=== PATIENT | male | born 1970 | race Caucasian/White ===

== ENCOUNTER 2021-11-26 15:42 | Outpatient (CLI) | payer BC | END 2021-11-26 15:43 | disposition home or self-care (01) | LOC: CSHULT 15:42 | PROVIDERS: ATTEND Family Medicine | DX: E04.1 Nontoxic single thyroid nodule (principal); E04.2 Nontoxic multinodular goiter | CPT/HCPCS: 76536 ==

== ENCOUNTER 2022-02-09 10:23 | Outpatient (CLI) | payer BC | END 2022-02-09 10:24 | disposition home or self-care (01) | LOC: CSHCT 10:23 | PROVIDERS: ATTEND Family Medicine | DX: R10.32 Left lower quadrant pain (principal); K43.9 Ventral hernia without obstruction or gangrene | CPT/HCPCS: 74177 ==

== ENCOUNTER 2022-09-11 06:56 | Inpatient (IN) | payer BC ==
[2022-09-11] MEDS ORDERED: Ondansetron PF 4 MG/2 ML Vial ONE (08:02)
[2022-09-11 08:13] LABS: #Basophils 0.1 10x3/uL (0.0-0.2); #Eosinphils 0.4 10x3/uL (0.0-0.5); #Monocytes 1.5 10x3/uL (0.0-1.1); #Neutrophils 13.8 10x3/uL (1.5-8.4); %Basophils 0.3 % (0.0-2.0); %Monocytes 8.3 % (0.0-10.0); %Neutrophils 77.8 % (40.0-75.0); Hemoglobin 17.7 g/dL (13.5-17.5); Mean Corpuscular HGB CONC 33.8 g/dL (32.0-36.0); Mean Corpuscular Hemoglobin 28.9 pg (27.0-33.0); Mean Corpuscular Volume 85.3 fl (81.2-95.1); Mean Platelet Volume 9.6 fl (7.4-10.4); Platelet Count 335 10x3/uL (150-450); RBC Distribution Width 13.3 % (11.5-14.5); Red Blood Cell (RBC) Count 6.13 10x6/uL (4.32-5.72); White Blood Cell (WBC) Count 17.7 10x3/uL (3.5-10.5)
[2022-09-11 08:21] LABS: ALT (SGPT) 14 U/L (8-55); AST (SGOT) 13 U/L (5-34); Albumin 4.4 g/dL (3.5-5.0); Alkaline Phosphatase 115 U/L (40-110); Anion Gap 23 mmol/L (10-20); BUN (Urea Nitrogen) 15 mg/dL (8.4-25.7); Bilirubin, Total 1.3 mg/dL (0.2-1.2); CK (CPK) 50 U/L (30-200); Calc. Creatinine Clearance 0 mL/min (70-130); Calcium 9.7 mg/dL (7.8-10.44); Carbon Dioxide 25 mmol/L (22-29); Chloride 100 mmol/L (98-107); Estimated GFR 91; Globulin 2.8 g/dL (2.4-3.5); Glucose 225 mg/dL (70-105); Lipase 18 U/L (8-78); Potassium 3.8 mmol/L (3.5-5.1); Protein, Total 7.2 g/dL (6.0-8.3); Sodium 144 mmol/L (136-145)
[2022-09-11 08:28] LABS: Bilirubin Neg (Negative); Blood, Urine Negative (Negative); Clarity Clear (Clear); Glucose, Urine (Dipstick) 100 mg/dL (Negative); Ketone, Urine 50 mg/dL (Negative); Leukocyte Negative (Negative); Nitrite Negative (Negative); Protein, Urine (Dipstick) 30 mg/dl (Neg-Trace); Specific Gravity, Urine 1.005 (1.005-1.030); Urobilinogen Normal mg/dL (Less than 2)
[2022-09-11 08:39] LABS: Bacteria/HPF Rare-Few HPF (None Seen); CAUTI Indications for Culture Pelvic or flank pain; RBC/HPF 0-3 HPF (0-3); Squamous Epithelial 0-3 HPF (0-3); WBC/HPF 0-3 HPF (0-3)
[2022-09-11 08:40] LABS: Urine Culture Reflex No No
[2022-09-11] MEDS ORDERED: Ondansetron PF 4 MG/2 ML Vial IVP PRN (09:39)
[2022-09-11] MEDS ORDERED: Morphine 4 MG/ML VIAL SLOW IVP PRN (09:46)
[2022-09-11] MEDS ORDERED: Dextrose 50% Abboject 50 ML SYRINGE SLOW IVP PRN (09:48)
[2022-09-11] MEDS ORDERED: Dextrose 5% in Water 1,000 ML IV PRN (09:48)
[2022-09-11] MEDS ORDERED: HumaLOG 300 UNITS/3 ML VIAL SC PRN (09:48)
[2022-09-11] MEDS ORDERED: Glucagon 1 MG/ML KIT IM PRN (09:48)
[2022-09-11] MEDS: Sodium Chloride 0.9% 1,000 ML IV SCH ×2 (10:00→16:12)
[2022-09-11 10:42] LABS: Lactic Acid 2.1 mmol/L (0.5-2.2)
[2022-09-11 13:30] VITALS: BMI 35.2
[2022-09-11] MEDS ORDERED: Iopamidol 300 61% 100 ML VIAL FS ONE (14:27)
[2022-09-11] MEDS ORDERED: Mesalamine DR 400 mg Capsule PO SCH (15:00)
[2022-09-11] MEDS: Mesalamine DR 400 mg Capsule PO SCH ×2 (16:00→21:17)
[2022-09-11] MEDS ORDERED: Loperamide HCl 2 MG CAP PO PRN (20:44)
[2022-09-11] MEDS ORDERED: Lantus 1000 UNITS/10 ML VIAL SC SCH (21:00)
[2022-09-11] MEDS: Enoxaparin 120 MG/0.8 ML SYRINGE SC SCH (21:15)
[2022-09-11] MEDS: Cyclobenzaprine 10 MG TAB PO PRN (21:17)
[2022-09-12] MEDS: Sodium Chloride 0.9% 1,000 ML IV SCH ×2 (01:47→08:54)
[2022-09-12 01:49] LABS: Campy jejuni + coli by PCR Negative (Negative); STEC Shiga Toxin 1+2 Negative (Negative); Salmonella spp. by PCR Negative (Negative); Shigella spp + EIEC by PCR Negative (Negative)
[2022-09-12 04:38] LABS: Phosphorus 3.2 mg/dL (2.3-4.7)
[2022-09-12 04:42] LABS: #Eosinphils 0.5 10x3/uL (0.0-0.5); #Monocytes 1.1 10x3/uL (0.0-1.1); #Neutrophils 6.9 10x3/uL (1.5-8.4); %Basophils 0.3 % (0.0-2.0); %Eosinophils 4.1 % (0.0-6.0); %Lymphocytes 26.7 % (18.0-47.0); %Monocytes 9.1 % (0.0-10.0); %Neutrophils 59.4 % (40.0-75.0); Hemoglobin 13.3 g/dL (13.5-17.5); Mean Corpuscular HGB CONC 32.7 g/dL (32.0-36.0); Mean Corpuscular Hemoglobin 28.6 pg (27.0-33.0); Mean Corpuscular Volume 87.5 fl (81.2-95.1); Mean Platelet Volume 9.7 fl (7.4-10.4); Platelet Count 285 10x3/uL (150-450); RBC Distribution Width 13.4 % (11.5-14.5); Red Blood Cell (RBC) Count 4.65 10x6/uL (4.32-5.72); White Blood Cell (WBC) Count 11.6 10x3/uL (3.5-10.5)
[2022-09-12 04:44] LABS: ALT (SGPT) 16 U/L (8-55); AST (SGOT) 17 U/L (5-34); Albumin 3.1 g/dL (3.5-5.0); Alkaline Phosphatase 73 U/L (40-110); Anion Gap 14 mmol/L (10-20); BUN (Urea Nitrogen) 12 mg/dL (8.4-25.7); Bilirubin, Total 0.9 mg/dL (0.2-1.2); Calc. Creatinine Clearance 175 mL/min (70-130); Calcium 8.2 mg/dL (7.8-10.44); Carbon Dioxide 23 mmol/L (22-29); Chloride 107 mmol/L (98-107); Estimated GFR 107; Globulin 2.3 g/dL (2.4-3.5); Glucose 122 mg/dL (70-105); Potassium 3.5 mmol/L (3.5-5.1); Protein, Total 5.4 g/dL (6.0-8.3); Sodium 140 mmol/L (136-145)
[2022-09-12 08:42] VITALS: BP 130/77; TEMP 98.8
[2022-09-12] MEDS: Enoxaparin 120 MG/0.8 ML SYRINGE SC SCH (08:56)
[2022-09-12] MEDS: Mesalamine DR 400 mg Capsule PO SCH (08:56)
[2022-09-12] MEDS ORDERED: Bupropion 150 MG XL TAB PO SCH (09:00)
[2022-09-12] MEDS: Cyclobenzaprine 10 MG TAB PO PRN (09:03)
== END 2022-09-12 10:40 | disposition home or self-care (01) | DRG 392 ==
LOC: CSHERS 06:56 → SUATTDRO 06:56 → CSHTELE 11:30
PROVIDERS: ADMIT Family Medicine; ATTEND Internal Medicine
DX: K52.9 Noninfective gastroenteritis and colitis, unspecified (principal); K50.90 Crohn's disease, unspecified, without complications; E10.9 Type 1 diabetes mellitus without complications; E86.0 Dehydration; Z90.49 Acquired absence of other specified parts of digestive tract
CPT/HCPCS: 36415; 36416; 74177; 80053; 81001; 82550; 83605; 83690; 83735; 84100; 84484; 85025; 87040; 87177; 87324; 87449; 87505; 93005; 96361; 96374; J1650; J1815; J2405; J7050; Q9967